=== PATIENT | female | born 1935 | race Caucasian/White ===

== ENCOUNTER 2018-03-15 14:18 | Emergency (ER) | payer MEDICARE, MEDICAID ==
[2018-03-15] MEDS: HYDROCODONE/APAP (5/325) TAB PO (19:15)
== END 2018-03-15 20:00 | disposition home or self-care (01) ==
LOC: E/R 14:18
DX: S89.91XA Unspecified injury of right lower leg, initial encounter (principal); I10 Essential (primary) hypertension; W01.0XXA Fall on same level from slipping, tripping and stumbling without subsequent striking against object, initial encounter; Y92.89 Other specified places as the place of occurrence of the external cause
CPT/HCPCS: 73562; 99283-25